=== PATIENT | female | born 1960 | race Caucasian/White ===

== ENCOUNTER 2020-03-18 10:23 | Emergency (ER) | payer OTHER ==
[~2020-03-18] VITALS: Ht 167.6 cm; Wt 61.2 kg
[~2020-03-18 10:23] MED LIST: RELAFEN500 MG; TEKTURNA150 MG PO
== END 2020-03-18 12:38 | disposition home or self-care (01) ==
LOC: ER 10:23
DX: M25.551 Pain in right hip (principal)

== ENCOUNTER 2021-06-15 08:17 | Outpatient (CLI) | payer OTHER | END 2021-06-15 08:18 | disposition home or self-care (01) | LOC: NUCLEAR 08:17 | PROVIDERS: ATTEND Internal Medicine Cardiovascular Disease | DX: R07.89 Other chest pain (principal) ==

== ENCOUNTER 2022-03-06 10:59 | Outpatient (CLI) | payer OTHER | END 2022-03-06 11:15 | disposition home or self-care (01) | LOC: MAMO-SONO 10:59 | PROVIDERS: ATTEND Internal Medicine Cardiovascular Disease | DX: M12.9 Arthropathy, unspecified (principal); M46.48 Discitis, unspecified, sacral and sacrococcygeal region; Z12.31 Encounter for screening mammogram for malignant neoplasm of breast; N63.11 Unspecified lump in the right breast, upper outer quadrant ==

== ENCOUNTER 2022-03-06 12:06 | Outpatient (CLI) | payer OTHER | END 2022-03-06 12:09 | disposition home or self-care (01) | LOC: NUCLEAR 12:06 | PROVIDERS: ATTEND Internal Medicine Cardiovascular Disease | DX: M81.0 Age-related osteoporosis without current pathological fracture (principal); E55.9 Vitamin D deficiency, unspecified; Z88.0 Allergy status to penicillin ==

== ENCOUNTER 2023-03-05 09:36 | Outpatient (CLI) | payer OTHER | END 2023-03-05 10:01 | disposition home or self-care (01) | LOC: SONOGRAMA 09:36 | PROVIDERS: ATTEND Internal Medicine Cardiovascular Disease | DX: M12.9 Arthropathy, unspecified (principal) ==